=== PATIENT | male | born 1995 | race Caucasian/White ===

== ENCOUNTER 2017-01-24 01:05 | Emergency (ER) | payer MEDICAID ==
[~2017-01-24] VITALS: Ht 177.8 cm; Wt 70.3 kg
[2017-01-24 01:12] VITALS: BP 120/68
--- NOTE | 2017-01-24 01:29 | NUR ---
PATIENT TO ER BED 3
--- NOTE | 2017-01-24 01:33 | NUR ---
PATIENT PRESENTS TO ED WITH C/O N/V DIARRHEA,ABD PAIN FOR 3-4 DAYS, DROWSINESS, HEADACHE. PT SKIN IS PINK/WARM/DRY; AAOX4 WITH EVEN AND STEADY GAIT; LUNGS CLEAR BL; HR EVEN AND REGULAR; PT DENIES ANY FEVER, CP, SOB, OR COUGH AT THIS TIME; PATIENT STATES PAIN OF 6/10 AT THIS TIME; VSS; PATIENT POSITIONED FOR COMFORT; HOB ELEVATED; BEDRAILS UP X2; BED DOWN. ER MD MADE AWARE OF PT STATUS.
--- NOTE | 2017-01-24 01:48 | NUR ---
DR HAMILTON AT BEDSIDE
[2017-01-24] MEDS ORDERED: ONDANSETRON 4 MG ODT PO ONE (02:00)
[2017-01-24 03:07] VITALS: BP 120/68
--- NOTE | 2017-01-24 03:08 | NUR ---
Patient discharged with v/s stable. Written and verbal after care instructions given and explained. Patient alert, oriented and verbalized understanding of instructions. Ambulatory with steady gait. All questions addressed prior to discharge. ID band removed. Patient advised to follow up with PMD. Rx of ZOFRAN AND ATIVAN given. Patient educated on indication of medication including possible reaction and side effects. Opportunity to ask questions provided and answered.
== END 2017-01-24 03:07 | disposition home or self-care (01) ==
LOC: MED 01:05
DX: A08.4 Viral intestinal infection, unspecified (principal); F41.0 Panic disorder [episodic paroxysmal anxiety]; F12.90 Cannabis use, unspecified, uncomplicated
CPT/HCPCS: 99283; S0119